=== PATIENT | female | born 1950 | race Caucasian/White ===

== ENCOUNTER 2023-07-20 07:55 | Inpatient (IN) | payer OTHER ==
[2023-07-20 09:20] LABS: HEMATOCRIT 15.1 % (32.4-45.2); MCH 26.7 pg (25.7-33.7); MCHC 30.9 g/dl (32.0-36.0); MEAN CELL VOLUME 86.3 fl (80-96); MEAN PLT VOLUME 7.5 fl (7.5-11.1); PLATELET COUNT 208 10^3/uL (134-434); RBC 1.75 M/mm3 (3.60-5.2); WHITE BLOOD COUNT 11.6 K/mm3 (4.0-10.0)
[2023-07-20 09:22] LABS: INR 3.92 (0.83-1.09); PROTHROMBIN TIME (PATIENT) 43.3 SEC (9.7-13.0)
[2023-07-20 09:23] LABS: HEMOGLOBIN 4.7 GM/dL (10.7-15.3)
[2023-07-20 09:40] LABS: POTASSIUM 4.7 mmol/L (3.5-5.1)
[2023-07-20 09:41] LABS: CALCIUM 8.3 mg/dL (8.5-10.1)
[2023-07-20 09:42] LABS: ALBUMIN 1.8 g/dl (3.4-5.0); BLOOD UREA NITROGEN 92.6 mg/dL (7-18); MAGNESIUM 2.1 mg/dL (1.8-2.4)
[2023-07-20 09:45] LABS: CREATININE 4.2 mg/dL (0.55-1.3)
[2023-07-20 09:47] LABS: BILIRUBIN,TOTAL 0.3 mg/dL (0.2-1); TOT PROT 5.3 g/dl (6.4-8.2)
[2023-07-20 10:05] LABS: ANISOCYTOSIS 2+; MACROCYTOSIS 2+
[2023-07-20 10:07] LABS: PLATELET ESTIMATE ADEQUATE
[2023-07-20] MEDS ORDERED: ACETAMINOPHEN 325 MG TABLET (FP) ONE (10:53)
[2023-07-20] MEDS: ACETAMINOPHEN 500 MG TABLET (FP) PO ONE ×2 (11:19→12:52)
[2023-07-20] MEDS ORDERED: ACETAMINOPHEN 325 MG TABLET (FP) PO PRN (13:48)
[2023-07-20] MEDS ORDERED: ALBUTEROL SO4 HFA INHALER IH PRN (13:48)
[2023-07-20] MEDS ORDERED: PATIENT'S OWN MEDICATION (NON-FORMULARY) (Midodrine Hcl [Midodrine Hcl] 10 MG Tablet) PO SCH (14:00)
[2023-07-20] MEDS ORDERED: PATIENT'S OWN MEDICATION (NON-FORMULARY) (Midodrine Hcl [Midodrine Hcl] 10 MG Tablet) PO PRN (14:02)
[2023-07-20] MEDS ORDERED: MIDODRINE HCL 5 MG TABLET PO PRN (14:03)
[2023-07-20 14:31] LABS: RETICULOCYTES 5.05 % (0.5-1.5)
[2023-07-20] MEDS: PANTOPRAZOLE SODIUM 40 MG VIAL IVPUSH ONE (15:30)
[2023-07-20] MEDS: INSULIN ASPART SLIDING SCALE (NOVOLOG) 1 VIAL SQ SCH (19:16)
[2023-07-20] MEDS: PANTOPRAZOLE SODIUM 80 MG in SODIUM CHLORIDE 100 ML IVPB SCH (19:30)
[2023-07-20 23:31] LABS: HEMATOCRIT 21.9 % (32.4-45.2); HEMOGLOBIN 7.1 GM/dL (10.7-15.3); MCHC 32.4 g/dl (32.0-36.0); MEAN CELL VOLUME 86.4 fl (80-96); MEAN PLT VOLUME 7.7 fl (7.5-11.1); PLATELET COUNT 194 10^3/uL (134-434); RBC 2.53 M/mm3 (3.60-5.2); RDW 16.2 % (11.6-15.6); WHITE BLOOD COUNT 13.4 K/mm3 (4.0-10.0)
[2023-07-20] MEDS: MUPIROCIN 2% TOPICAL OINTMENT FOR DECOLONIZATION NS SCH (23:33)
[2023-07-20] MEDS: CHLORHEXIDINE GLUCONATE 4% CLEANSER FOR DECOLONIZATION TP SCH (23:34)
[2023-07-20] MEDS: ATORVASTATIN CA 10 MG TABLET (FP) PO SCH (23:34)
[2023-07-21 00:53] LABS: ANISOCYTOSIS 2+; MACROCYTOSIS 0
[2023-07-21] MEDS: LEVOTHYROXINE NA 125 MCG TABLET (FP) PO SCH (06:06)
[2023-07-21] MEDS: ACETAMINOPHEN 1000 MG/100 ML BAG IVPB PRN (09:16)
[2023-07-21] MEDS: MIDODRINE HCL 5 MG TABLET PO SCH ×2 (09:17→11:50)
[2023-07-21] MEDS ORDERED: SODIUM CHLORIDE 250 ML IV PRN (09:25)
[2023-07-21 09:41] LABS: HEMATOCRIT 21.1 % (32.4-45.2); MCH 27.8 pg (25.7-33.7); MCHC 32.2 g/dl (32.0-36.0); MEAN CELL VOLUME 86.2 fl (80-96); MEAN PLT VOLUME 7.7 fl (7.5-11.1); PLATELET COUNT 177 10^3/uL (134-434); RBC 2.45 M/mm3 (3.60-5.2); RDW 15.6 % (11.6-15.6); WHITE BLOOD COUNT 15.1 K/mm3 (4.0-10.0)
[2023-07-21 09:47] LABS: HEMOGLOBIN 6.8 GM/dL (10.7-15.3); INR 3.79 (0.83-1.09); PROTHROMBIN TIME (PATIENT) 41.2 SEC (9.7-13.0)
[2023-07-21 10:15] LABS: ANISOCYTOSIS 0; MACROCYTOSIS 0
[2023-07-21 11:51] LABS: ALBUMIN 1.7 g/dl (3.4-5.0); ALK PHOS 59 U/L (45-117); ANION GAP 13 mmol/L (4-13); BILIRUBIN,TOTAL 0.6 mg/dL (0.2-1); BLOOD UREA NITROGEN 120.5 mg/dL (7-18); CALCIUM 7.4 mg/dL (8.5-10.1); CHLORIDE 105 mmol/L (98-107); CO2 21 mmol/L (21-32); CREATININE 4.4 mg/dL (0.55-1.3); GLUCOSE,RANDOM 142 mg/dL (74-106); PHOSPHOROUS 6.1 mg/dL (2.5-4.9); POTASSIUM 5.1 mmol/L (3.5-5.1); SGOT/AST 11 U/L (15-37); SGPT/ALT 8 U/L (13-61); SODIUM 139 mmol/L (136-145); TOT PROT 4.5 g/dl (6.4-8.2)
[2023-07-21] MEDS: VANCOMYCIN/WATER FOR INJ (PEG) 1,000 MG/200 ML BAG IVPB ONE (11:54)
[2023-07-21] MEDS: AZTREONAM 1 GM in DEXTROSE 5%-WATER - 50 ML IVPB SCH (14:26)
[2023-07-21] MEDS: EPOETIN ALFA-EPBX 10,000 UNIT/ML VIAL IVPUSH ONE (14:49)
[2023-07-21 18:14] LABS: BASO % 0.7 % (0-2.0); EOS % 1.2 % (0-4.5); HEMATOCRIT 18.8 % (32.4-45.2); LYMPH % 10.9 % (8-40); MCH 28.8 pg (25.7-33.7); MCHC 33.4 g/dl (32.0-36.0); MEAN CELL VOLUME 86.2 fl (80-96); MEAN PLT VOLUME 7.5 fl (7.5-11.1); MONO % 7.3 % (3.8-10.2); NEUT % 79.9 % (42.8-82.8); PLATELET COUNT 159 10^3/uL (134-434); RBC 2.18 M/mm3 (3.60-5.2); RDW 15.2 % (11.6-15.6); WHITE BLOOD COUNT 13.7 K/mm3 (4.0-10.0)
[2023-07-21 18:40] LABS: HEMOGLOBIN 6.3 GM/dL (10.7-15.3)
[2023-07-21] MEDS: NYSTATIN/TRIAMCINOLONE TOPICAL CREAM 15 GM TUBE TP SCH (18:51)
[2023-07-21] MEDS ORDERED: NOREPINEPHRINE 0.9 % NACL 8 MG/250 ML BAG IVPB SCH (21:45)
[2023-07-21] MEDS ORDERED: NOREPINEPHRINE BITARTRATE 4 MG/4 ML ML IV ONE (21:58)
[2023-07-21] MEDS: NOREPINEPHRINE BITARTRATE 4,000 MCG in DEXTROSE 5%-WATER - 496 ML IV SCH (22:21)
[2023-07-22 07:14] LABS: HEMATOCRIT 21.5 % (32.4-45.2); HEMOGLOBIN 7.2 GM/dL (10.7-15.3); MCH 29.1 pg (25.7-33.7); MCHC 33.6 g/dl (32.0-36.0); MEAN CELL VOLUME 86.8 fl (80-96); MEAN PLT VOLUME 7.5 fl (7.5-11.1); PLATELET COUNT 180 10^3/uL (134-434); RBC 2.48 M/mm3 (3.60-5.2); RDW 15.5 % (11.6-15.6); WHITE BLOOD COUNT 15.3 K/mm3 (4.0-10.0)
[2023-07-22] MEDS: LORazepam 1 MG TABLET PO ONE (08:15)
[2023-07-22 08:50] LABS: ANISOCYTOSIS 2+; MACROCYTOSIS 0
[2023-07-22] MEDS: MIDODRINE HCL 5 MG TABLET PO SCH (10:30)
[2023-07-22 14:02] LABS: BASO % 1.4 % (0-2.0); HEMATOCRIT 19.6 % (32.4-45.2); LYMPH % 11.4 % (8-40); MCH 28.8 pg (25.7-33.7); MEAN CELL VOLUME 87.4 fl (80-96); MEAN PLT VOLUME 7.5 fl (7.5-11.1); MONO % 7.2 % (3.8-10.2); PLATELET COUNT 166 10^3/uL (134-434); RBC 2.24 M/mm3 (3.60-5.2); RDW 15.2 % (11.6-15.6); WHITE BLOOD COUNT 14.1 K/mm3 (4.0-10.0)
[2023-07-22 14:09] LABS: HEMOGLOBIN 6.4 GM/dL (10.7-15.3)
[2023-07-22] MEDS: LORazepam 2 MG/ML SDV VIAL IVPUSH ONE (15:02)
[2023-07-22] MEDS: NOREPINEPHRINE BITARTRATE/D5W 8 MG/250 ML BAG IVPB SCH (15:15)
[2023-07-22 19:28] LABS: ARTERIAL BLD GAS O2 SATURATION 97.7 % (95-98); ARTERIAL BLOOD GAS BASE EXCESS -3.2 mmol/L (-2-2); ARTERIAL BLOOD GAS PO2 113.4 mmHg (80-100); ARTERIAL BLOOD GAS pH 7.294 (7.350-7.450)
[2023-07-22 19:31] LABS: ALLENS TEST POSITIVE
[2023-07-22] MEDS: MIDODRINE HCL 5 MG TABLET PO ONE (21:50)
[2023-07-22 22:18] LABS: BASO % 1.2 % (0-2.0); EOS % 2.3 % (0-4.5); HEMATOCRIT 28.9 % (32.4-45.2); HEMOGLOBIN 9.4 GM/dL (10.7-15.3); LYMPH % 11.5 % (8-40); MCH 28.9 pg (25.7-33.7); MCHC 32.7 g/dl (32.0-36.0); MEAN CELL VOLUME 88.3 fl (80-96); MEAN PLT VOLUME 7.3 fl (7.5-11.1); MONO % 8.8 % (3.8-10.2); NEUT % 76.2 % (42.8-82.8); PLATELET COUNT 217 10^3/uL (134-434); RBC 3.27 M/mm3 (3.60-5.2); RDW 15.2 % (11.6-15.6); WHITE BLOOD COUNT 19.4 K/mm3 (4.0-10.0)
[2023-07-23] MEDS ORDERED: SODIUM CHLORIDE 250 ML IV PRN (14:39)
[2023-07-23 14:43] LABS: BASO % 0.7 % (0-2.0); EOS % 1.8 % (0-4.5); HEMOGLOBIN 8.8 GM/dL (10.7-15.3); LYMPH % 9.1 % (8-40); MCH 28.6 pg (25.7-33.7); MCHC 32.6 g/dl (32.0-36.0); MEAN CELL VOLUME 87.8 fl (80-96); MEAN PLT VOLUME 7.4 fl (7.5-11.1); MONO % 7.5 % (3.8-10.2); NEUT % 80.9 % (42.8-82.8); PLATELET COUNT 184 10^3/uL (134-434); RBC 3.07 M/mm3 (3.60-5.2); WHITE BLOOD COUNT 13.1 K/mm3 (4.0-10.0)
[2023-07-23] MEDS: EPOETIN ALFA-EPBX 10,000 UNIT/ML VIAL SQ ONE (15:36)
[2023-07-23 15:46] LABS: BILIRUBIN,TOTAL 0.6 mg/dL (0.2-1); BLOOD UREA NITROGEN 93.7 mg/dL (7-18); CALCIUM 8.1 mg/dL (8.5-10.1); CREATININE 3.6 mg/dL (0.55-1.3); MAGNESIUM 1.9 mg/dL (1.8-2.4); PHOSPHOROUS 6.3 mg/dL (2.5-4.9); POTASSIUM 4.5 mmol/L (3.5-5.1)
[2023-07-23] MEDS: NOREPINEPHRINE BITARTRATE 4,000 MCG in DEXTROSE 5%-WATER - 496 ML IV SCH (17:28)
[2023-07-23] MEDS: PANTOPRAZOLE SODIUM 40 MG VIAL IVPUSH SCH (22:15)
[2023-07-24] MEDS: ONDANSETRON 4 MG/2 ML VIAL IVPUSH PRN (00:46)
[2023-07-24 08:08] LABS: BASO % 0.8 % (0-2.0); EOS % 1.9 % (0-4.5); HEMATOCRIT 27.5 % (32.4-45.2); HEMOGLOBIN 9.1 GM/dL (10.7-15.3); LYMPH % 6.7 % (8-40); MCH 29.4 pg (25.7-33.7); MCHC 33.2 g/dl (32.0-36.0); MEAN CELL VOLUME 88.7 fl (80-96); MEAN PLT VOLUME 7.6 fl (7.5-11.1); MONO % 7.3 % (3.8-10.2); NEUT % 83.3 % (42.8-82.8); PLATELET COUNT 204 10^3/uL (134-434); RDW 16.3 % (11.6-15.6); WHITE BLOOD COUNT 15.2 K/mm3 (4.0-10.0)
[2023-07-24] MEDS: ACETAMINOPHEN 1000 MG/100 ML BAG IVPB STA (09:03)
[2023-07-24 09:25] LABS: ALBUMIN 2.1 g/dl (3.4-5.0); BILIRUBIN,TOTAL 0.6 mg/dL (0.2-1); BLOOD UREA NITROGEN 52.7 mg/dL (7-18); CALCIUM 8.2 mg/dL (8.5-10.1); CREATININE 2.5 mg/dL (0.55-1.3); MAGNESIUM 1.8 mg/dL (1.8-2.4); PHOSPHOROUS 4.3 mg/dL (2.5-4.9); POTASSIUM 4.2 mmol/L (3.5-5.1); TOT PROT 5.2 g/dl (6.4-8.2)
[2023-07-24] MEDS ORDERED: NOREPINEPHRINE BITARTRATE 4 MG/4 ML ML IV ONE ×2 (11:31→21:53)
[2023-07-24] MEDS: PANTOPRAZOLE SODIUM 80 MG in SODIUM CHLORIDE 100 ML IVPB SCH (19:20)
[2023-07-24] MEDS: PANTOPRAZOLE SODIUM 40 MG VIAL IVPUSH SCH (19:21)
[2023-07-25 07:42] LABS: ALBUMIN 1.9 g/dl (3.4-5.0); BILIRUBIN,TOTAL 0.5 mg/dL (0.2-1); BLOOD UREA NITROGEN 57.1 mg/dL (7-18); CALCIUM 7.9 mg/dL (8.5-10.1); MAGNESIUM 1.8 mg/dL (1.8-2.4); TOT PROT 4.8 g/dl (6.4-8.2)
[2023-07-25 08:04] LABS: POTASSIUM 3.6 mmol/L (3.5-5.1)
[2023-07-25 08:43] LABS: BASO % 1.3 % (0-2.0); EOS % 3.1 % (0-4.5); HEMATOCRIT 25.8 % (32.4-45.2); HEMOGLOBIN 8.5 GM/dL (10.7-15.3); MCH 29.2 pg (25.7-33.7); MCHC 32.8 g/dl (32.0-36.0); MONO % 9.2 % (3.8-10.2); NEUT % 72.4 % (42.8-82.8); PLATELET COUNT 245 10^3/uL (134-434); RDW 16.7 % (11.6-15.6); WHITE BLOOD COUNT 12.5 K/mm3 (4.0-10.0)
[2023-07-25] MEDS: MAGNESIUM 2GM/50ML STERILE WATER IVPB IVPB ONE (09:17)
[2023-07-25] MEDS: VANCOMYCIN/WATER FOR INJ (PEG) 1,000 MG/200 ML BAG IVPB ONE (11:57)
[2023-07-25 12:38] LABS: BASO % 1.3 % (0-2.0); EOS % 2.9 % (0-4.5); HEMOGLOBIN 8.8 GM/dL (10.7-15.3); LYMPH % 10.6 % (8-40); MCH 29.5 pg (25.7-33.7); MCHC 32.7 g/dl (32.0-36.0); MEAN CELL VOLUME 90.4 fl (80-96); MEAN PLT VOLUME 7.6 fl (7.5-11.1); MONO % 7.1 % (3.8-10.2); NEUT % 78.1 % (42.8-82.8); PLATELET COUNT 246 10^3/uL (134-434); RBC 2.99 M/mm3 (3.60-5.2); RDW 16.9 % (11.6-15.6); WHITE BLOOD COUNT 13.9 K/mm3 (4.0-10.0)
[2023-07-25] MEDS: ACETAMINOPHEN 1000 MG/100 ML BAG IVPB ONE (13:00)
[2023-07-26 06:29] LABS: BASO % 0.9 % (0-2.0); EOS % 4.5 % (0-4.5); HEMATOCRIT 28.1 % (32.4-45.2); HEMOGLOBIN 9.2 GM/dL (10.7-15.3); LYMPH % 13.1 % (8-40); MCH 29.4 pg (25.7-33.7); MCHC 32.6 g/dl (32.0-36.0); MEAN CELL VOLUME 90.2 fl (80-96); MEAN PLT VOLUME 7.9 fl (7.5-11.1); MONO % 10.7 % (3.8-10.2); NEUT % 70.8 % (42.8-82.8); PLATELET COUNT 280 10^3/uL (134-434); RBC 3.12 M/mm3 (3.60-5.2); WHITE BLOOD COUNT 13.7 K/mm3 (4.0-10.0)
[2023-07-26 06:34] LABS: INR 2.03 (0.83-1.09); PROTHROMBIN TIME (PATIENT) 22.5 SEC (9.7-13.0)
[2023-07-26] MEDS ORDERED: SODIUM CHLORIDE 250 ML IV PRN (07:26)
[2023-07-26 08:00] LABS: ALK PHOS 72 U/L (45-117); ANION GAP 11 mmol/L (4-13); BILIRUBIN,TOTAL 0.5 mg/dL (0.2-1); BLOOD UREA NITROGEN 64.6 mg/dL (7-18); CALCIUM 8.2 mg/dL (8.5-10.1); CHLORIDE 104 mmol/L (98-107); CO2 25 mmol/L (21-32); CREATININE 3.4 mg/dL (0.55-1.3); GLUCOSE,RANDOM 226 mg/dL (74-106); MAGNESIUM 2.2 mg/dL (1.8-2.4); PHOSPHOROUS 4.9 mg/dL (2.5-4.9); POTASSIUM 3.7 mmol/L (3.5-5.1); SGOT/AST 5 U/L (15-37); SGPT/ALT < 6 U/L (13-61); SODIUM 140 mmol/L (136-145); TOT PROT 5.1 g/dl (6.4-8.2)
[2023-07-26] MEDS: EPOETIN ALFA-EPBX 10,000 UNIT/ML VIAL IVPUSH ONE (17:15)
[2023-07-26] MEDS: LORazepam 0.5 MG TABLET PO PRN (21:21)
[2023-07-27 07:22] LABS: BASO % 1.3 % (0-2.0); EOS % 4.7 % (0-4.5); HEMATOCRIT 28.3 % (32.4-45.2); HEMOGLOBIN 9.1 GM/dL (10.7-15.3); MCHC 32.3 g/dl (32.0-36.0); MEAN PLT VOLUME 7.9 fl (7.5-11.1); MONO % 10.1 % (3.8-10.2); NEUT % 73.9 % (42.8-82.8); PLATELET COUNT 299 10^3/uL (134-434); RBC 3.14 M/mm3 (3.60-5.2); RDW 17.7 % (11.6-15.6); WHITE BLOOD COUNT 14.4 K/mm3 (4.0-10.0)
[2023-07-27 07:27] LABS: INR 1.89 (0.83-1.09); PROTHROMBIN TIME (PATIENT) 21.3 SEC (9.7-13.0)
[2023-07-27 07:36] LABS: CHLORIDE 104 mmol/L (98-107); POTASSIUM 3.2 mmol/L (3.5-5.1); SODIUM 140 mmol/L (136-145)
[2023-07-27 07:38] LABS: CALCIUM 7.9 mg/dL (8.5-10.1)
[2023-07-27 07:39] LABS: ALBUMIN 1.7 g/dl (3.4-5.0); ANION GAP 7 mmol/L (4-13); CO2 28 mmol/L (21-32); MAGNESIUM 1.9 mg/dL (1.8-2.4)
[2023-07-27 07:42] LABS: BILIRUBIN,TOTAL 0.4 mg/dL (0.2-1); GLUCOSE,RANDOM 202 mg/dL (74-106); PHOSPHOROUS 3.3 mg/dL (2.5-4.9); SGOT/AST 6 U/L (15-37); TOT PROT 4.8 g/dl (6.4-8.2)
[2023-07-27 07:45] LABS: ALK PHOS 86 U/L (45-117); CREATININE 2.4 mg/dL (0.55-1.3)
[2023-07-27 07:47] LABS: BLOOD UREA NITROGEN 36.9 mg/dL (7-18); SGPT/ALT < 6 U/L (13-61)
[2023-07-27] MEDS ORDERED: HYDROCORTISONE 10 MG TABLET PO SCH ×2 (10:26→10:27)
[2023-07-27] MEDS: POTASSIUM CHLORIDE ORAL LIQUID 20 MEQ/15 ML PO ONE ×2 (11:17→17:41)
[2023-07-27] MEDS: VASopressin 40 UNITS/100 ML BAG IV SCH (11:36)
[2023-07-27] MEDS: HYDROCORTISONE SOD SUCCINATE 100 MG/2 ML VIAL IVPB SCH (11:47)
[2023-07-28] MEDS ORDERED: SODIUM CHLORIDE 250 ML IV PRN (07:58)
[2023-07-28] MEDS: EPOETIN ALFA-EPBX 10,000 UNIT/ML VIAL SQ ONE (09:05)
[2023-07-28 11:23] VITALS: BMI 47.3
[2023-07-28] MEDS: HYDROCORTISONE SOD SUCCINATE 100 MG/2 ML VIAL IVPB SCH (11:24)
[2023-07-28] MEDS: PHYTONADIONE 5 MG TABLET PO ONE (11:25)
[2023-07-28] MEDS: AMINO ACIDS 4.25%/D5W 1,000 ML IV SCH (14:12)
[2023-07-28 15:45] LABS: HEMATOCRIT 28.4 % (32.4-45.2); HEMOGLOBIN 8.5 GM/dL (10.7-15.3); MCH 28.6 pg (25.7-33.7); MCHC 30.1 g/dl (32.0-36.0); MEAN CELL VOLUME 94.9 fl (80-96); MEAN PLT VOLUME 8.1 fl (7.5-11.1); PLATELET COUNT 352 10^3/uL (134-434); RBC 2.99 M/mm3 (3.60-5.2); RDW 20.6 % (11.6-15.6); WHITE BLOOD COUNT 15.5 K/mm3 (4.0-10.0)
[2023-07-28] MEDS ORDERED: INSULIN ASPART SLIDING SCALE (NOVOLOG) 1 VIAL SQ ONE ×2 (15:49→18:13)
[2023-07-28 16:12] LABS: CHLORIDE 80 mmol/L (98-107); POTASSIUM 3.2 mmol/L (3.5-5.1)
[2023-07-28 16:15] LABS: BLOOD UREA NITROGEN 21.9 mg/dL (7-18)
[2023-07-28 16:16] LABS: CO2 22 mmol/L (21-32); MAGNESIUM 1.5 mg/dL (1.8-2.4)
[2023-07-28 16:19] LABS: CREATININE 1.9 mg/dL (0.55-1.3); PHOSPHOROUS 1.9 mg/dL (2.5-4.9); SGOT/AST 4 U/L (15-37)
[2023-07-28 16:20] LABS: BILIRUBIN,TOTAL 0.3 mg/dL (0.2-1)
[2023-07-28 16:21] LABS: ALK PHOS 59 U/L (45-117)
[2023-07-28 16:38] LABS: ALBUMIN 1.3 g/dl (3.4-5.0); ANION GAP 11 mmol/L (4-13); SGPT/ALT < 6 U/L (13-61)
[2023-07-28 16:43] LABS: CALCIUM 6.5 mg/dL (8.5-10.1); GLUCOSE,RANDOM 986 mg/dL (74-106); SODIUM 113 mmol/L (136-145)
[2023-07-28 17:58] LABS: ANISOCYTOSIS 2+; MACROCYTOSIS 1+; OVALOCYTE 1+
[2023-07-28 18:01] LABS: HEMATOCRIT 28.2 % (32.4-45.2); HEMOGLOBIN 8.5 GM/dL (10.7-15.3); MCH 28.8 pg (25.7-33.7); MCHC 30.1 g/dl (32.0-36.0); MEAN CELL VOLUME 95.8 fl (80-96); MEAN PLT VOLUME 8.1 fl (7.5-11.1); PLATELET COUNT 332 10^3/uL (134-434); RBC 2.94 M/mm3 (3.60-5.2); RDW 19.8 % (11.6-15.6)
[2023-07-28 18:09] LABS: CHLORIDE 96 mmol/L (98-107); SODIUM 129 mmol/L (136-145)
[2023-07-28 18:12] LABS: ALBUMIN 1.4 g/dl (3.4-5.0); ANION GAP 9 mmol/L (4-13); BLOOD UREA NITROGEN 22.7 mg/dL (7-18); CO2 24 mmol/L (21-32)
[2023-07-28] MEDS: VANCOMYCIN/WATER FOR INJ (PEG) 1,000 MG/200 ML BAG IVPB ONE (18:14)
[2023-07-28 18:15] LABS: CREATININE 1.8 mg/dL (0.55-1.3)
[2023-07-28 18:16] LABS: BILIRUBIN,TOTAL 0.3 mg/dL (0.2-1); TOT PROT 3.9 g/dl (6.4-8.2)
[2023-07-28 18:18] LABS: ALK PHOS 63 U/L (45-117)
[2023-07-28] MEDS: POTASSIUM CHLORIDE ORAL LIQUID 20 MEQ/15 ML PO ONE (18:33)
[2023-07-28 18:57] LABS: CALCIUM 6.5 mg/dL (8.5-10.1); SGOT/AST 12 U/L (15-37); SGPT/ALT < 6 U/L (13-61)
[2023-07-28 20:19] LABS: ANISOCYTOSIS 2+; MACROCYTOSIS 0; OVALOCYTE 1+
[2023-07-29 07:39] LABS: BASO % 0.6 % (0-2.0); HEMATOCRIT 30.5 % (32.4-45.2); HEMOGLOBIN 9.9 GM/dL (10.7-15.3); LYMPH % 7.1 % (8-40); MCH 29.9 pg (25.7-33.7); MCHC 32.3 g/dl (32.0-36.0); MEAN CELL VOLUME 92.6 fl (80-96); MEAN PLT VOLUME 8.2 fl (7.5-11.1); MONO % 2.5 % (3.8-10.2); NEUT % 89.8 % (42.8-82.8); PLATELET COUNT 408 10^3/uL (134-434); RDW 20.4 % (11.6-15.6); WHITE BLOOD COUNT 9.1 K/mm3 (4.0-10.0)
[2023-07-29 07:47] LABS: CHLORIDE 101 mmol/L (98-107); SODIUM 135 mmol/L (136-145)
[2023-07-29 07:49] LABS: ANION GAP 6 mmol/L (4-13); BLOOD UREA NITROGEN 35.7 mg/dL (7-18); CO2 28 mmol/L (21-32); GLUCOSE,RANDOM 282 mg/dL (74-106); MAGNESIUM 1.9 mg/dL (1.8-2.4)
[2023-07-29 07:52] LABS: CREATININE 2.4 mg/dL (0.55-1.3); SGOT/AST 6 U/L (15-37); SGPT/ALT < 6 U/L (13-61)
[2023-07-29 07:53] LABS: PHOSPHOROUS 3.3 mg/dL (2.5-4.9)
[2023-07-29 07:54] LABS: BILIRUBIN,TOTAL 0.4 mg/dL (0.2-1); INR 1.43 (0.83-1.09)
[2023-07-29 07:55] LABS: ALK PHOS 82 U/L (45-117)
[2023-07-29 07:56] LABS: ACTIVATED PTT 43.3 SECONDS (25.2-36.5)
[2023-07-29 07:58] LABS: ALBUMIN 1.8 g/dl (3.4-5.0); CALCIUM 8.7 mg/dL (8.5-10.1)
[2023-07-29] MEDS ORDERED: INSULIN ASPART SLIDING SCALE (NOVOLOG) 1 VIAL SQ ONE ×2 (11:31→23:01)
[2023-07-29] MEDS: HYDROCORTISONE SOD SUCCINATE 100 MG/2 ML VIAL IVPB SCH (17:45)
[2023-07-30] MEDS ORDERED: SODIUM CHLORIDE 250 ML IV PRN ×2 (10:00→12:22)
[2023-07-30 10:26] LABS: BASO % 0.1 % (0-2.0); HEMATOCRIT 30.8 % (32.4-45.2); HEMOGLOBIN 9.7 GM/dL (10.7-15.3); LYMPH % 6.2 % (8-40); MCH 29.2 pg (25.7-33.7); MCHC 31.5 g/dl (32.0-36.0); MEAN CELL VOLUME 92.5 fl (80-96); MEAN PLT VOLUME 8.2 fl (7.5-11.1); MONO % 7.3 % (3.8-10.2); NEUT % 86.4 % (42.8-82.8); PLATELET COUNT 444 10^3/uL (134-434); RBC 3.33 M/mm3 (3.60-5.2); RDW 20.5 % (11.6-15.6); WHITE BLOOD COUNT 9.3 K/mm3 (4.0-10.0)
[2023-07-30 10:45] LABS: CHLORIDE 98 mmol/L (98-107); POTASSIUM 4.8 mmol/L (3.5-5.1); SODIUM 132 mmol/L (136-145)
[2023-07-30 10:47] LABS: CALCIUM 8.5 mg/dL (8.5-10.1)
[2023-07-30 10:48] LABS: ALBUMIN 1.9 g/dl (3.4-5.0); ANION GAP 7 mmol/L (4-13); BLOOD UREA NITROGEN 53.4 mg/dL (7-18); CO2 27 mmol/L (21-32); GLUCOSE,RANDOM 334 mg/dL (74-106); MAGNESIUM 1.8 mg/dL (1.8-2.4)
[2023-07-30 10:51] LABS: PHOSPHOROUS 3.8 mg/dL (2.5-4.9); SGOT/AST 7 U/L (15-37); SGPT/ALT < 6 U/L (13-61)
[2023-07-30 10:52] LABS: BILIRUBIN,TOTAL 0.4 mg/dL (0.2-1); TOT PROT 5.3 g/dl (6.4-8.2)
[2023-07-30 10:54] LABS: ALK PHOS 87 U/L (45-117)
[2023-07-30] MEDS: EPOETIN ALFA-EPBX 10,000 UNIT/ML VIAL IVPUSH ONE (13:25)
[2023-07-30] MEDS ORDERED: INSULIN ASPART SLIDING SCALE (NOVOLOG) 1 VIAL SQ ONE ×3 (17:21→21:26)
[2023-07-30] MEDS: PANTOPRAZOLE 40 MG TABLET PO SCH (21:31)
[2023-07-30] MEDS: HYDROCORTISONE SOD SUCCINATE 100 MG/2 ML VIAL IVPB SCH (21:31)
[2023-07-31] MEDS: HYDROCORTISONE SOD SUCCINATE 100 MG/2 ML VIAL IVPB SCH (10:16)
[2023-08-01] MEDS ORDERED: SODIUM CHLORIDE 250 ML IV PRN (14:32)
[2023-08-01] MEDS: EPOETIN ALFA-EPBX 4,000 UNIT/ML VIAL SQ ONE (18:08)
[2023-08-02] MEDS: HYDROCORTISONE 20 MG, HYDROCORTISONE 5 MG PO SCH (09:25)
[2023-08-02] MEDS ORDERED: HYDROCORTISONE 20 MG TABLET PO SCH (10:00)
[2023-08-02 12:26] VITALS: BP 139/63; PULSE 100; RESP 24; TEMP 97.1
== END 2023-08-02 11:29 | DRG 871 ==
LOC: JER 07:55 → JERBED 10:59 → JICU 14:45 → J4W 07-29 17:12
PROVIDERS: ADMIT Family Medicine; ATTEND Family Medicine
PROC: 30233N1 Transfusion of Nonautologous Red Blood Cells into Peripheral Vein, Percutaneous Approach (ICD-10-PCS; principal; 2023-07-20)
PROC: 05HN33Z Insertion of Infusion Device into Left Internal Jugular Vein, Percutaneous Approach (ICD-10-PCS; 2023-07-22)
PROC: B544ZZA Ultrasonography of Left Jugular Veins, Guidance (ICD-10-PCS; 2023-07-22)
PROC: 5A1D70Z Performance of Urinary Filtration, Intermittent, Less than 6 Hours Per Day (ICD-10-PCS; 2023-08-01)
DX: A41.9 Sepsis, unspecified organism (principal); J18.9 Pneumonia, unspecified organism; N18.6 End stage renal disease; R65.21 Severe sepsis with septic shock; I13.2 Hypertensive heart and chronic kidney disease with heart failure and with stage 5 chronic kidney disease, or end stage renal disease; J44.0 Chronic obstructive pulmonary disease with (acute) lower respiratory infection; K92.2 Gastrointestinal hemorrhage, unspecified; D62 Acute posthemorrhagic anemia; Z68.42 Body mass index [BMI] 45.0-49.9, adult; L03.115 Cellulitis of right lower limb; L03.116 Cellulitis of left lower limb; E11.22 Type 2 diabetes mellitus with diabetic chronic kidney disease; E66.01 Morbid (severe) obesity due to excess calories; E03.9 Hypothyroidism, unspecified; D53.9 Nutritional anemia, unspecified; E78.5 Hyperlipidemia, unspecified; I48.91 Unspecified atrial fibrillation; L89.302 Pressure ulcer of unspecified buttock, stage 2; E87.6 Hypokalemia
CPT/HCPCS: 0241U-QW; 36415; 36430; 36600; 71045-TC-FY; 74176-TC; 80048; 80053; 82272; 82533; 82728; 82803; 82962; 83010; 83540; 83550; 83615; 83735; 84100; 84443; 85025; 85045; 85610; 85730; 86704; 86705; 86803; 86850; 86900; 86901; 86922; 87040; 87340; 87517; 87635; 93005; 93010; 93306-TC; 93970-TC; 93971; 97161-GP; 99291; G0480; J0131; J3490; P9038; P9058; Q5106